=== PATIENT | male | born 1940 | race Caucasian/White ===

== ENCOUNTER 2017-08-01 18:39 | Inpatient (IN) | payer MEDICARE, BC ==
[2017-08-01 20:25] LABS: Troponin I 0.301 ng/mL (< 0.028)
[2017-08-01] MEDS ORDERED: Enoxaparin Sodium 100 MG/ML SYRINGE ONE (20:31)
--- NOTE | 2017-08-01 21:18 | CT ---
CT BRAIN NONCONTRAST: HISTORY: 77-year-old male with altered mental status and acute head trauma from fall. FINDINGS: There is no midline shift or any other mass effect. There is no evidence of acute intracranial hemor rhage, large cortical infarct, obstructive hydrocephalus, or extraaxial fluid collection. The calvar ium is intact. IMPRESSION: No acute intracranial findings. cristal POS: [facility]
--- NOTE | 2017-08-01 21:44 | PDOC.EVN ---
Event Note - Event Note Event Note: [id number] H&P Dictated 1. CAD 2. FEVER 3. HTN 4. Fatigue plan: see orders
[2017-08-01 21:52] VITALS: BMI 29.5
[2017-08-01] MEDS ORDERED: HYDROcodone/Acetaminophen 5/325 mg Tablet PO PRN (22:13)
[2017-08-01] MEDS ORDERED: Ondansetron HCl/PF 4 MG/2 ML Vial IVP PRN (22:13)
[2017-08-01] MEDS ORDERED: Sodium Chloride 0.9% 1,000 ML IV SCH (22:15)
[2017-08-01] MEDS: Tamsulosin HCl 0.4 MG CAP PO SCH ×2 (23:05→23:06)
[2017-08-01] MEDS: MEROPENEM 1 GM/50 ML 1 GM in Premix Bag 1 BAG IVPB SCH (23:11)
[2017-08-01 23:39] LABS: Troponin I 0.298 ng/mL (< 0.028)
[2017-08-02] MEDS: Acetaminophen 325 MG TAB PO PRN ×2 (00:39→15:57)
[2017-08-02 02:12] LABS: #Eosinphils 0.1 thou/uL (0.0-0.7); #Lymphocytes 0.5 thou/uL (1.20-3.40); #Monocytes 0.6 thou/uL (0.11-0.59); #Neutrophils 4.2 thou/uL (1.40-6.50); %Basophils 0.7 % (0.0-1.0); %Lymphocytes 9.3 % (21.0-51.0); %Monocytes 11.3 % (0.0-10.0); Hematocrit 39.4 % (42.0-52.0); Mean Platelet Volume 9.8 fL (7.4-10.4); Red Blood Cell (RBC) Count 4.32 mill/uL (4.70-6.10); White Blood Cell (WBC) Count 5.4 thou/uL (4.8-10.8)
[2017-08-02 02:36] LABS: Anion Gap 10 mmol/L (10-20); BUN (Urea Nitrogen) 14 mg/dL (8.4-25.7); Calc. Creatinine Clearance 107 mL/min (70-130); Calcium 8.6 mg/dL (7.8-10.44); Carbon Dioxide 24 mmol/L (23-31); Chloride 108 mmol/L (98-107); Estimated GFR-MDRD Greater than 90
[2017-08-02 02:53] LABS: Troponin I 0.326 ng/mL (< 0.028)
[2017-08-02 03:27] LABS: Bilirubin Negative (Negative); Blood, Urine Moderate (Negative); Glucose, Urine (Dipstick) Negative (Negative); Ketone, Urine Negative (Negative); Nitrite Negative (Negative); Protein, Urine (Dipstick) 100 mg/dL (Neg-Trace)
[2017-08-02 03:29] LABS: Bacteria/HPF None Seen HPF (None Seen); Hyaline Casts/LPF 0-3 HYALINE CAST LPF (0-3 Hyaline); Squamous Epithelial 0-3 HPF (0-3); WBC/HPF 0-3 HPF (0-3)
--- NOTE | 2017-08-02 06:18 | HP ---
DATE OF ADMISSION: 08/01/2017 CHIEF COMPLAINT: Fever, weakness, falls. HISTORY OF PRESENT ILLNESS: The patient is a 77-year-old male with past medical history of hepatocellular carcinoma, coronary artery disease, hypertension, came to the ER complaining of falls. The patient was having falls since this morning associated with some weakness also who had 2 episodes of falls. Denies any head injury, denies any loss of consciousness. The patient also having cough and also fever; fever at home is up to 100.2. The patient was having body aches. The patient had an episode of diarrhea yesterday , numerous episodes and also episode of vomiting also. Complains of decreased p.o. intake. Headache is mild in intensity. Denies any radiation. No aggravating factors, no relieving factors. Denies any chest pain, denies any dizziness at this time. PAST MEDICAL HISTORY: As per HPI. PAST SURGICAL HISTORY: CABG, carpel tunnel surgery, eye surgery. SOCIAL HISTORY: Denies smoking, denies alcohol, denies any drugs. FAMILY HISTORY: Positive for heart problems. REVIEW OF SYSTEMS: Constitutional: Positive for fatigue. Positive for fever. Eyes: Denies any vision problems. Ears: Decreased hearing, chronic. Neck: Denies any neck pain. Cardiovascular System: Denies any chest pain. Denies any palpations. Respiratory System: Positive for cough. Gastrointestinal: Denies nausea, vomiting. Musculoskeletal: Denies any joint deformities. Cranial Nerves System: Denies syncope. All other review of systems are reviewed and are negative. PHYSICAL EXAMINATION: CONSTITUTIONAL/VITAL SIGNS: Blood pressure is 178/70, temperature 102, respiratory rate 18. GENERAL: The patient appears comfortable. HEENT: Pupils are equal, round, and reactive to light. Anterior nares patent. Nose normal. Ears normal. Teeth intact. CHEST: old healed scar present. GASTROINTESTINAL: Abdomen is soft, nontender, no guarding, no organomegaly, no masses felt. RESPIRATORY SYSTEM: Diminished breath sounds present bilaterally. No wheezing , no rhonchi. Breath sounds present bilaterally. MUSCULOSKELETAL: No edema. CRANIAL NERVE SYSTEM: Cranial nerves intact. Follows commands. Speech clear. PSYCHIATRIC: Mood is appropriate at this time. LABORATORY DATA: Labs at the time of H&P performed, troponin 0.301. CK 107. Flu test negative. Chest x-ray no acute disease seen. BMP showed sodium 142, potassium 3.5, chloride 108, CO2 of 20, BUN 13, creatinine 0.83. Lactic acid 1.2. BNP 900. ASSESSMENT AND PLAN: The patient is a 77-year-old male: 1. [id number] elevation myocardial infarction. Plan to check cardiac enzymes. Plan to monitor the patient closely. The patient received a dose of Lovenox in the ER. Elevated troponins might be demand ischemia. We will follow the patient closely. 2. Systemic inflammatory response syndrome, etiology unclear. Plan to start broad-spectrum antibiotics, repeat chest x-ray in the morning, and we will monitor the patient closely. We will send urinalysis and urine culture and sensitivity also. 3. History of hypertension. Monitor blood pressures. Continue home blood pressure medications. 4. Falls. Probably secondary to generalized weakness. We will get PT, OT evaluation. 5. History of coronary artery disease. Continue home medications. The case was discussed in detail with the patient. RACHEL
[2017-08-02 06:54] LABS: Troponin I 0.297 ng/mL (< 0.028)
[2017-08-02] MEDS: Famotidine 20 MG TAB PO SCH ×2 (08:06→20:29)
[2017-08-02] MEDS: FLUoxetine HCl 10 MG CAP PO SCH (08:06)
[2017-08-02] MEDS: Aspirin 81 mg Enteric Coated Tablet PO SCH (08:06)
[2017-08-02] MEDS: MEROPENEM 1 GM/50 ML 1 GM in Premix Bag 1 BAG IVPB SCH ×4 (08:06→23:44)
[2017-08-02] MEDS: Heparin 5,000 UNITS/ML VIAL SC SCH ×3 (08:07→20:28)
[2017-08-02] MEDS: Lisinopril 20 MG TAB PO SCH ×2 (08:07→20:28)
[2017-08-02] MEDS: traMADol HCl 50 MG TAB PO SCH ×2 (08:07→20:29)
[2017-08-02] MEDS: Tamsulosin HCl 0.4 MG CAP PO SCH (08:08)
--- NOTE | 2017-08-02 09:51 | PDOC.PN ---
- Subjective Encounter Start Date: 08/02/17 Encounter Start Time: 09:49 Mr. Apodaca was seen today in follow-up of generalized weakness, and elevated troponin's - Objective MAR Reviewed: Yes Vital Signs & Weight: Vital Signs (12 hours) Temp Pulse Resp BP BP Pulse Ox 08/02/17 07:15 99.0 F 77 20 159/74 H 95 08/02/17 05:00 100.4 F H 72 18 140/67 95 08/02/17 01:25 100.4 F H 08/02/17 00:35 101.1 F H 165/74 H I&O: 08/01/17 08/02/17 08/03/17 06:59 06:59 06:59 Intake Total 100 Balance 100 Result Diagrams: 08/02/17 02:02 08/02/17 02:02 Phys Exam - Physical Examination HEENT: PERRLA Respiratory: no wheezing, no rales, no rhonchi, clear to auscultation bilateral Cardiovascular: RRR, no significant murmur Gastrointestinal: soft, non-tender, positive bowel sounds Musculoskeletal: no edema Dx/Plan (1) Viral syndrome Status: Acute (2) SIRS (systemic inflammatory response syndrome) Code(s): R65.10 - SIRS OF NON-INFECTIOUS ORIGIN W/O ACUTE ORGAN DYSFUNCTION Status: Acute (3) Elevated troponin Code(s): R74.8 - ABNORMAL LEVELS OF OTHER SERUM ENZYMES Status: Acute (4) Coronary artery disease Code(s): I25.10 - ATHSCL HEART DISEASE OF [place] CORONARY ARTERY W/O ANG PCTRS Status: Chronic (5) Hypertension Code(s): I10 - ESSENTIAL (PRIMARY) HYPERTENSION Status: Chronic - Plan * Elevated Troponin's- suspect this is due to demand ischemia * Cardiology has been consulted * SIRS- likely viral in origin, his UA was essentially negative, and CXR from [facility] was reported to be negative as well * However will continue Meropenem until culture results are final * CAD- stable
[2017-08-02] MEDS ORDERED: Furosemide 20 MG/2 ML VIAL SLOW IVP SCH (13:30)
--- NOTE | 2017-08-02 14:05 | CON ---
DATE OF CONSULTATION: 08/02/2017 REASON FOR CONSULTATION: Fever with slight increased troponin level. HISTORY OF PRESENT ILLNESS: Mr. Apodaca is a 77-year-old gentleman who has just not been feeling well f or several weeks, had generalized weakness. He was transferred from [place] after he was found to ve a fever of 102 degrees, had some diarrhea and had some increased troponin levels, no chest pain or pressure. He was not eating well. The patient has been falling as well. The patient also had a fall a few weeks ago, hit his head but he said he did not lose consciousness. PAST MEDICAL HISTORY: Previous bypass surgery. PAST SURGICAL HISTORY: Previous bypass surgery. FAMILY HISTORY: Positive for coronary disease. REVIEW OF SYSTEMS: CONSTITUTIONAL: Positive for weakness and fatigue. VISION: No changes. HEARING: No changes. INFECTIOUS DISEASE: Positive for fever of 102 degrees. PULMONARY: No cough or wheezing. CARDIAC: No chest pain, no palpitations. GASTROINTESTINAL: Positive for diarrhea, no nausea or vomiting. SKIN: No rashes. NEUROLOGIC: No unilateral weakness or numbness. PSYCHIATRIC: No unusual depression or anxiety. PHYSICAL EXAMINATION: VITAL SIGNS: His initial blood pressure was high 178/70, temperature 102 degrees. EYES: Sclerae nonicteric. MOUTH: Mucous membranes moist. NECK: Supple, no lymphadenopathy. LUNGS: Clear, no wheezing, rales or rhonchi. CARDIOVASCULAR: Normal S1, normal S2 with frequent premature contractions. There is a soft systolic murmur left lower sternal border. No diastolic murmur, no S3. ABDOMEN: Soft, nontender, no hepatosplenomegaly. EXTREMITIES: Warm, dry, no clubbing or cyanosis. There is mild edema. PERTINENT LABORATORY: BNP was 900, apparently that was in [place], I do not see the BNP done here. EKG sinus rhythm with PACs, right bundle branch block. Troponin level peak 0.326, potassium 3.3, WBCs 5.4, platelet count 110. ASSESSMENT: 1. Fever of uncertain etiology. 2. Increased troponin level, probably demand ischemia. 3. Hypertension. 4. Coronary artery disease. 5. Increased BNP compatible with heart failure. 6. Echocardiogram was done, ejection fraction 50-55%, indicating this is diastolic heart failure. 7. Increased troponin levels, likely demand ischemia. PLAN: 1. Repeat chest x-ray tomorrow. 2. Give a single dose of Lasix. 3. Continue aspirin. 4. Continue CRYSTAL inhibitors. 5. We will be glad to follow with you.
[2017-08-02] MEDS ORDERED: Potassium Chloride 20 MEQ TAB PO SCH (17:00)
[2017-08-03] MEDS: Acetaminophen 325 MG TAB PO PRN ×2 (02:07→16:01)
[2017-08-03 05:03] LABS: Anion Gap 11 mmol/L (10-20); BUN (Urea Nitrogen) 16 mg/dL (8.4-25.7); Calc. Creatinine Clearance 94 mL/min (70-130); Calcium 8.2 mg/dL (7.8-10.44); Carbon Dioxide 25 mmol/L (23-31); Chloride 106 mmol/L (98-107); Estimated GFR-MDRD 82
[2017-08-03 05:16] LABS: #Basophils 0.1 thou/uL (0.0-0.2); #Lymphocytes 0.9 thou/uL (1.20-3.40); #Monocytes 0.5 thou/uL (0.11-0.59); #Neutrophils 3.6 thou/uL (1.40-6.50); %Basophils 1.1 % (0.0-1.0); %Eosinophils 0.5 % (0.0-10.0); %Lymphocytes 17.9 % (21.0-51.0); %Monocytes 9.3 % (0.0-10.0); Hematocrit 38.9 % (42.0-52.0); Mean Platelet Volume 10.3 fL (7.4-10.4); Red Blood Cell (RBC) Count 4.26 mill/uL (4.70-6.10)
[2017-08-03] MEDS: MEROPENEM 1 GM/50 ML 1 GM in Premix Bag 1 BAG IVPB SCH ×3 (08:30→23:22)
[2017-08-03] MEDS: Heparin 5,000 UNITS/ML VIAL SC SCH ×3 (08:31→20:51)
[2017-08-03] MEDS: Aspirin 81 mg Enteric Coated Tablet PO SCH (08:31)
[2017-08-03] MEDS: Tamsulosin HCl 0.4 MG CAP PO SCH (08:31)
[2017-08-03] MEDS: Famotidine 20 MG TAB PO SCH ×2 (08:31→20:50)
[2017-08-03] MEDS: FLUoxetine HCl 10 MG CAP PO SCH (08:31)
[2017-08-03] MEDS: Lisinopril 20 MG TAB PO SCH ×2 (08:31→20:50)
[2017-08-03] MEDS: traMADol HCl 50 MG TAB PO SCH ×2 (08:32→20:50)
--- NOTE | 2017-08-03 09:36 | RAD ---
CHEST 1 VIEW: Date: 08/03/17 HISTORY: Shortness of breath. COMPARISON: Chest 1 view dated 04/27/12. FINDINGS: Lungs are clear. No pneumothorax or effusion. Atelectatic changes left lung base. Severe degenerative changes of the shoulders. Multiple median sternotomy wires. Cardiac silhouette and mediastinal conto urs are similar. No acute osseous abnormality. IMPRESSION: Chronic changes. No acute intrathoracic abnormality. No significant change from 2011. POS: [facility]
[2017-08-03] MEDS ORDERED: Potassium Chloride 20 MEQ TAB PO SCH (09:45)
--- NOTE | 2017-08-03 12:37 | PDOC.PN ---
- Subjective Encounter Start Date: 08/03/17 Encounter Start Time: 12:36 Mr. Apodaca was seen today in follow-up. He says he feels better today. He is concerned that his concern about passing out has not been addressed. His reports that a few days prior to admission the patient feel, unexpectedly, and did not have any recollection of the event. She says he has done this more than once. - Objective MAR Reviewed: Yes Vital Signs & Weight: Vital Signs (12 hours) Temp Pulse Resp BP BP Pulse Ox 08/03/17 11:37 99.4 F 69 16 135/85 99 08/03/17 08:00 98.9 F 71 16 08/03/17 07:52 98.9 F 71 16 170/80 H 94 L 08/03/17 03:49 100.4 F H 76 18 143/69 H I&O: 08/02/17 08/03/17 08/04/17 06:59 06:59 06:59 Intake Total 100 60 Output Total 400 Balance 100 -340 Result Diagrams: 08/03/17 04:12 08/03/17 04:12 Phys Exam - Physical Examination HEENT: PERRLA Respiratory: no wheezing, no rales, no rhonchi, clear to auscultation bilateral Cardiovascular: RRR, no significant murmur Gastrointestinal: soft, non-tender, positive bowel sounds Musculoskeletal: no edema Dx/Plan (1) Viral syndrome Status: Acute (2) SIRS (systemic inflammatory response syndrome) Code(s): R65.10 - SIRS OF NON-INFECTIOUS ORIGIN W/O ACUTE ORGAN DYSFUNCTION Status: Acute (3) Elevated troponin Code(s): R74.8 - ABNORMAL LEVELS OF OTHER SERUM ENZYMES Status: Acute (4) Coronary artery disease Code(s): I25.10 - ATHSCL HEART DISEASE OF [place] CORONARY ARTERY W/O ANG PCTRS Status: Chronic (5) Hypertension Code(s): I10 - ESSENTIAL (PRIMARY) HYPERTENSION Status: Chronic - Plan * SIRS- this is improving- suspect due to a viral syndrome * Still awaiting the blood culture results from [place] * Syncope?- will check carotid dopplers, and will discuss with Dr. Meza. * HTN- blood pressure is stable * Elevated troponins- demand ischemia from SIRS
--- NOTE | 2017-08-03 16:42 | ULT ---
EXAM: CAROTID ULTRASOUND 08/03/17 HISTORY: Syncope. COMPARISON: None. TECHNIQUE: Menjivar scale, color flow, doppler imaging with spectral waveform analysis performed in the carotid and vertebral arteries. FINDINGS: RIGHT CAROTID: Small foci of calcified plaque in the distal common carotid artery, carotid bifurcation and internal carotid artery. Peak systolic velocity of the common carotid artery is 72.8 cm/s. Peak systolic veloc ity of the internal carotid artery is 89.7 cm/s. Systolic ICA to CCA ratio is 1.23. LEFT CAROTID: Small foci of calcified plaque in the common carotid artery, carotid bifurcation and internal carotid artery. Peak systolic velocity of the common carotid artery is 100.4 cm/s. Peak systolic velocity of the internal carotid artery is 69.6 cm/s. Systolic ICA to CCA ratio is 0.7. Antegrade flow in both vertebral arteries. IMPRESSION: No sonographic evidence of hemodynamically significantly stenosis. POS: [facility]
[2017-08-04 08:17] VITALS: TEMP 100.6
[2017-08-04] MEDS: Famotidine 20 MG TAB PO SCH (08:52)
[2017-08-04] MEDS: Aspirin 81 mg Enteric Coated Tablet PO SCH (08:52)
[2017-08-04] MEDS: traMADol HCl 50 MG TAB PO SCH (08:53)
[2017-08-04] MEDS: Lisinopril 20 MG TAB PO SCH (08:53)
[2017-08-04] MEDS: Heparin 5,000 UNITS/ML VIAL SC SCH (08:54)
[2017-08-04] MEDS: Tamsulosin HCl 0.4 MG CAP PO SCH (08:55)
[2017-08-04] MEDS: FLUoxetine HCl 10 MG CAP PO SCH (08:57)
[2017-08-04 08:58] VITALS: BP 140/61
[2017-08-04] MEDS: MEROPENEM 1 GM/50 ML 1 GM in Premix Bag 1 BAG IVPB SCH (10:09)
--- NOTE | 2017-08-04 10:09 | PDOC.PN ---
- Subjective Encounter Start Date: 08/04/17 Encounter Start Time: 10:05 Mr. Apodaca was seen in follow-up of fever, and sepsis syndrome. He feels better, but still has some cough at night. - Objective MAR Reviewed: Yes Vital Signs & Weight: Vital Signs (12 hours) Temp Pulse Resp BP BP BP Pulse Ox 08/04/17 09:58 100.6 F H 79 16 08/04/17 08:53 140/61 08/04/17 07:35 100.6 F H 79 16 183/90 H 93 L 08/04/17 04:10 99.4 F 69 20 143/80 H 08/03/17 23:23 100.0 F H 86 16 144/76 H 93 L I&O: 08/03/17 08/04/17 08/05/17 06:59 06:59 06:59 Intake Total 60 1590 250 Output Total 400 1000 Balance -340 590 250 Result Diagrams: 08/03/17 04:12 08/04/17 04:33 Phys Exam - Physical Examination HEENT: PERRLA Respiratory: no wheezing, no rales, no rhonchi, clear to auscultation bilateral Cardiovascular: RRR, no significant murmur Gastrointestinal: soft, non-tender, positive bowel sounds Musculoskeletal: no edema Dx/Plan (1) Viral syndrome Status: Acute (2) SIRS (systemic inflammatory response syndrome) Code(s): R65.10 - SIRS OF NON-INFECTIOUS ORIGIN W/O ACUTE ORGAN DYSFUNCTION Status: Acute (3) Elevated troponin Code(s): R74.8 - ABNORMAL LEVELS OF OTHER SERUM ENZYMES Status: Acute (4) Coronary artery disease Code(s): I25.10 - ATHSCL HEART DISEASE OF [place] CORONARY ARTERY W/O ANG PCTRS Status: Chronic (5) Hypertension Code(s): I10 - ESSENTIAL (PRIMARY) HYPERTENSION Status: Chronic - Plan * Patient is clinically improved * HTN- blood pressure is labile * Blood cultures from [facility] in [facility] were requested and obtained, and were negative X 48hrs. * He is stable for discharge home.
--- NOTE | 2017-08-04 14:10 | DIS ---
PRIMARY CARE PHYSICIAN: The patient does not have a primary care physician. DATE OF ADMISSION: 08/01/2017 DATE OF DISCHARGE: 08/04/2017 DISCHARGE DISPOSITION: Home. PRIMARY DISCHARGE DIAGNOSES: 1. Viral syndrome. 2. Systemic anti-inflammatory response secondary to #1. 3. History of coronary artery disease. 4. Non-ST elevated myocardial infarction type 2 secondary to demand ischemia. 5. Hypertension. 6. History of hepatocellular carcinoma. 7. History of prostate cancer. DISCHARGE MEDICATIONS: Include Robitussin-AC one teaspoon q.4 hours p.r.n. cough, tramadol 100 mg tw ice a day, Flomax 0.4 mg p.o. daily, Crestor 20 mg at bedtime, Nitrostat 0.4 sublingual p.r.n., lisin opril 20 mg twice daily, fluoxetine 10 mg daily, and aspirin 81 mg a day. PROCEDURES DONE DURING ADMISSION: The patient had a CT scan of the brain showing no acute intracrani al finding. Echo demonstrated an ejection fraction estimated at 50% to 55%, moderate to severe eleva buddy pulmonary artery pressure. No sonographic evidence of any hemodynamically significant stenosis. CODE STATUS: FULL CODE. ALLERGIES: MEPERIDINE, PENICILLIN, PREDNISONE, PROMETHAZINE, PROPOXYPHENE, PROCAINAMIDE, SULFA, AND PREDNISONE. HOSPITAL COURSE: Mr. Apodaca is a pleasant 77-year-old gentleman, who presented to the emergency room w ith some fever and feeling weak and complained of having a fall. He was evaluated in the ER and foun d to have an elevated troponin at 0.3. Cultures were negative; however, including urine and blood cu ltures. Chest x-ray was done, which was essentially normal as well. He is felt that he likely had a viral syndrome and systemic inflammatory response secondary to the virus. He was evaluated by Cardi ology due to the elevated troponin. These are thought to be due to demand ischemia, likely from the sepsis syndrome. The patient's mentioned that he had an episode where he passed out and for thi s reason, carotid Dopplers were done, these were negative. I discussed this with Dr. Meza as well and he recommends that he have an event monitor placed as an outpatient, but suspects that the syncop e was likely orthostatic in origin. The patient was clinically stable. He was very nontoxic in appe arance at the time of discharge despite a low-grade temperature. He will be taken off of all antibio tics and was instructed that if he should have recurrent fever or any worsening symptoms to return to the ER.
--- NOTE | 2017-08-06 17:05 | PQF ---
HALIE SONI TONI MD [id number] [id number] CLINICAL DOCUMENTATION CLARIFICATION FORM: POST DISCHARGE Addendum to original discharge summary date: ____ Late entry note date: __ DATE: 08/06/2017 Please exercise your independent, professional judgment in responding to the clarification form. Clinical indicators are provided on the bottom of this form for your review Please check appropriate box(s): [ X] Sepsis due to: (Pna, UTI, gangrenous gall bladder, etc.) Viral [ ] SIRS due to non-infectious process (please specify etiology) [ X] with organ dysfunction [ ] without organ dysfunction [ ] Severe sepsis with acute organ dysfunction of: (Examples: respiratory failure, encephalopathy, acute kidney failure, other) [ ] Localized infection without sepsis [ ] Other diagnosis [ ] Unable to determine In addition, please specify: Present on Admission (POA): [ X ] Yes [ ] No [ ] Unable to determine For continuity of documentation, please document condition throughout progress notes and discharge summary. Thank You. CLINICAL INDICATORS - SIGNS / SYMPTOMS / LABS DISCHARGE SUMMARY PRIMARY DISCHARGE DIAGNOSIS: Viral Syndrome, Systemic inflammatory response syndrome HOSPITAL COURSE: He is felt that he likely had a viral syndrome and systemic inflammatory response secondary to the virus. He was evaluated by Cardiology due to elevated troponin. These are thought to be due to demand ischemia, likely from sepsis syndrome. H&P CHIEF COMPLAINT: Fever, weakness, falls CONSTITUTIONAL/VITAL SIGNS: Blood pressure is 178/70, temperature 102, respiratory rate 18 LABORATORY DATA: Lactic acid 1.2 ASSESSMENT AND PLAN: Systemic inflammatory response syndrome, etiology unclear. PROGRESS NOTES Mr. Soni was seen in follow-up of fever, and sepsis syndrome Blood cultures from [facility] in [place] were requested and obtained, and were negative X 48hrs. ER VITAL SIGNS: BP 148/74, Pulse: 75, Resp: 15, Temp 99.3 BP 119/64, Pulse 65, Resp: 24 TREATMENTS: Daily CBC Blood/sputum/wound cultures IV antibiotics - broad spectrum IV Fluids Vasopressors, meds (This form is maintained as a part of the permanent medical record) 2014 [employer] All Rights Reserved Reggie [email or web address] [phone] MTDD
== END 2017-08-04 11:09 | disposition home or self-care (01) | DRG 871 ==
LOC: ERS 18:39 → OBSVTOIN 19:40 → 2SW 19:40
PROVIDERS: ADMIT Internal Medicine; ATTEND Internal Medicine
DX: A41.89 Other specified sepsis (principal); I21.A1 Myocardial infarction type 2; Z85.05 Personal history of malignant neoplasm of liver; Z95.1 Presence of aortocoronary bypass graft; I25.10 Atherosclerotic heart disease of native coronary artery without angina pectoris; B34.9 Viral infection, unspecified; I10 Essential (primary) hypertension; Z85.46 Personal history of malignant neoplasm of prostate; Z86.73 Personal history of transient ischemic attack (TIA), and cerebral infarction without residual deficits; I25.2 Old myocardial infarction; R65.20 Severe sepsis without septic shock
CPT/HCPCS: 36415; 70450; 71010; 80048; 81001; 82553; 83735; 84132; 84484; 85025; 93005; 93306; 93880; 94760; 96372; J1644; J1650; J1940

== ENCOUNTER 2019-10-16 11:17 | Outpatient (CLI) | payer MEDICARE, BC ==
[2019-10-16 14:04] LABS: #Basophils 0.1 thou/uL (0.0-0.2); #Eosinphils 0.2 thou/uL (0.0-0.7); #Lymphocytes 1.7 thou/uL (1.20-3.40); #Monocytes 0.8 thou/uL (0.11-0.59); #Neutrophils 7.2 thou/uL (1.40-6.50); %Basophils 0.5 % (0.0-1.0); %Eosinophils 1.8 % (0.0-10.0); %Lymphocytes 17.4 % (21.0-51.0); %Monocytes 8.2 % (0.0-10.0); %Neutrophils 72.1 % (42.0-75.0); Hemoglobin 12.2 g/dL (14.0-18.0); Mean Corpuscular HGB CONC 33.6 g/dL (32.0-36.0); Mean Corpuscular Hemoglobin 30.2 pg (27.0-31.0); Mean Corpuscular Volume 90.1 fL (78.0-98.0); Mean Platelet Volume 11.1 fL (7.4-10.4); Platelet Count 140 thou/uL (130-400); RBC Distribution Width 13.7 % (11.5-14.5); Red Blood Cell (RBC) Count 4.04 mill/uL (4.70-6.10)
[2019-10-16 14:23] LABS: Anion Gap 14 mmol/L (10-20); BUN (Urea Nitrogen) 24 mg/dL (8.4-25.7); Calc. Creatinine Clearance 0 mL/min (70-130); Calcium 9.1 mg/dL (7.8-10.44); Carbon Dioxide 27 mmol/L (23-31); Chloride 107 mmol/L (98-107); Estimated GFR-MDRD 47; Glucose 97 mg/dL (83-110); Potassium 3.5 mmol/L (3.5-5.1); Sodium 144 mmol/L (136-145)
== END 2019-10-16 11:18 | disposition home or self-care (01) ==
LOC: LABBT 11:17
PROVIDERS: ATTEND Internal Medicine Cardiovascular Disease
DX: Z01.812 Encounter for preprocedural laboratory examination (principal); I48.91 Unspecified atrial fibrillation
CPT/HCPCS: 80048; 85025

== ENCOUNTER 2019-10-18 09:44 | Day surgery (SDC) | payer MEDICARE, BC ==
[2019-10-16 12:06] VITALS: BMI 31.9
[2019-10-18] MEDS ORDERED: PROPOFOL 0 ML ONE (10:56)
[2019-10-18] MEDS ORDERED: PROPOFOL 20 ML ONE (11:14)
--- NOTE | 2019-10-19 08:32 | EKG ---
Test Reason : POST Blood Pressure : / mmHG Vent. Rate : 059 BPM Atrial Rate : 061 BPM P-R Int : 000 ms QRS Dur : 146 ms QT Int : 550 ms P-R-T Axes : 000 -81 055 degrees QTc Int : 544 ms Atrial fibrillation with slow ventricular response Left axis deviation Right bundle branch block Inferior infarct (cited on or before 01-AUG-2017) Abnormal ECG When compared with ECG of 01-AUG-2017 18:55, Atrial fibrillation has replaced Sinus rhythm Questionable change in QRS axis T wave inversion no longer evident in Anterior leads Confirmed by DR. Umu ALLEN ([id number]) on 10/19/2019 8:32:05 AM Referred By: TIFFANY Confirmed By:DR. Umu ALLEN
--- NOTE | 2019-10-19 16:37 | OP ---
DATE OF PROCEDURE: 10/19/19 SURGEON: Andrea Meza M.D. PROCEDURE: Cardioversion INDICATION: Persistent atrial fibrillation with diastolic congestive heart failure. The patient is brought to the Post Cath area in the fasting state. The patient was sedated by anesthe graciela. He was given 300 joules dose of synchronized energy and converted to junctional bradycardia, the n sinus rhythm with multiple PACs. The 300 joules was selected as he had a longstanding atrial fibril lation and it was thought most likely we would get a successful cardioversion with one attempt at thi s dose. CONCLUSIONS: 1. Successful cardioversion. 2. Sinus rhythm with frequent PACs.
== END 2019-10-18 12:38 | disposition home or self-care (01) ==
LOC: CCL 09:44
PROVIDERS: ATTEND Internal Medicine Cardiovascular Disease
PROC: 5A2204Z Restoration of Cardiac Rhythm, Single (ICD-10-PCS; principal; 2019-10-18)
DX: I48.11 Longstanding persistent atrial fibrillation (principal); I13.0 Hypertensive heart and chronic kidney disease with heart failure and stage 1 through stage 4 chronic kidney disease, or unspecified chronic kidney disease; N18.3 Chronic kidney disease, stage 3 (moderate); I50.30 Unspecified diastolic (congestive) heart failure; I25.10 Atherosclerotic heart disease of native coronary artery without angina pectoris; E78.00 Pure hypercholesterolemia, unspecified; Z79.01 Long term (current) use of anticoagulants; Z79.82 Long term (current) use of aspirin; Z79.83 Long term (current) use of bisphosphonates; Z79.899 Other long term (current) drug therapy; Z88.0 Allergy status to penicillin; Z88.2 Allergy status to sulfonamides; Z88.8 Allergy status to other drugs, medicaments and biological substances; Z88.5 Allergy status to narcotic agent
CPT/HCPCS: 92960; 93005; 93010; J2704

== ENCOUNTER 2022-02-28 14:18 | Inpatient (IN) | payer MEDICARE, BC ==
[2022-02-28 15:39] LABS: Albumin 3.8 g/dL (3.4-4.8)
[2022-02-28 15:40] LABS: Chloride 101 mmol/L (98-107); Sodium 132 mmol/L (136-145)
[2022-02-28 15:41] LABS: Calcium 9.6 mg/dL (7.8-10.44); Glucose 121 mg/dL (83-110)
[2022-02-28 15:43] LABS: Bilirubin, Total 1.2 mg/dL (0.2-1.2)
[2022-02-28 15:44] LABS: Alkaline Phosphatase 171 U/L (40-110)
[2022-02-28 15:45] LABS: Calc. Creatinine Clearance 0 mL/min (70-130); Estimated GFR 72
[2022-02-28 15:46] LABS: BUN (Urea Nitrogen) 15 mg/dL (8.4-25.7)
[2022-02-28 15:47] LABS: ALT (SGPT) 34 U/L (8-55); Magnesium 1.8 mg/dL (1.6-2.6)
[2022-02-28 15:48] LABS: Lipase 12 U/L (8-78)
[2022-02-28 16:12] LABS: CKMB 1.5 ng/mL (0-6.6)
[2022-02-28 16:35] LABS: #Basophils 0.1 thou/uL (0.0-0.2); #Lymphocytes 0.8 thou/uL (1.20-3.40); #Monocytes 1.5 thou/uL (0.11-0.59); #Neutrophils 7.7 thou/uL (1.40-6.50); %Basophils 0.7 % (0.0-1.0); %Eosinophils 0.4 % (0.0-10.0); %Lymphocytes 8.2 % (21.0-51.0); %Monocytes 14.9 % (0.0-10.0); %Neutrophils 75.8 % (42.0-75.0); Hemoglobin 14.9 g/dL (14.0-18.0); Mean Corpuscular Hemoglobin 32.3 pg (27.0-31.0); Mean Platelet Volume 9.9 fL (7.4-10.4); Platelet Count 139 thou/uL (130-400); RBC Distribution Width 14.1 % (11.5-14.5); Red Blood Cell (RBC) Count 4.62 mill/uL (4.70-6.10); White Blood Cell (WBC) Count 10.1 thou/uL (4.8-10.8)
[2022-02-28 16:56] LABS: Potassium 4.4 mmol/L (3.5-5.1)
[2022-02-28 16:57] LABS: Carbon Dioxide 23 mmol/L (23-31)
[2022-02-28 16:58] LABS: Anion Gap 12 mmol/L (10-20)
[2022-02-28 16:59] LABS: AST (SGOT) 39 U/L (5-34); Protein, Total 6.8 g/dL (5.8-8.1)
[2022-02-28] MEDS ORDERED: cefTRIAXone\\ROCEPHIN 2 GM VIAL ONE (17:10)
[2022-02-28] MEDS ORDERED: Ondansetron ODT 4 MG TAB PO PRN (18:20)
[2022-02-28] MEDS ORDERED: Furosemide 20 MG/2 ML VIAL SLOW IVP SCH (18:20)
[2022-02-28] MEDS ORDERED: Nitroglycerin 0.4 MG TAB (25 Tab Bottle) SL PRN (18:30)
[2022-02-28 18:51] LABS: Bilirubin Negative (Negative); Blood, Urine Negative (Negative); Clarity Clear (Clear); Glucose, Urine (Dipstick) Normal (Negative); Ketone, Urine Trace mg/dL (Negative); Leukocyte Negative Leu/uL (Negative); Nitrite Negative (Negative); Protein, Urine (Dipstick) Negative (Neg-Trace); Specific Gravity, Urine 1.015 (1.002-1.036); Urobilinogen Normal mg/dL (Less than 2)
[2022-02-28 19:42] LABS: Lactic Acid 2.2 mmol/L (0.5-2.2)
[2022-02-28 19:55] LABS: Critical Call Chem Troponin I RESULT DECREASING; Troponin I 0.571 ng/mL (< 0.028)
[2022-02-28] MEDS ORDERED: Apixaban 5 MG TAB PO SCH (21:00)
[2022-02-28 22:13] LABS: Troponin I 0.954 ng/mL (< 0.028)
[2022-02-28] MEDS: Acetaminophen 325 MG TAB PO PRN (22:36)
[2022-03-01] MEDS: Ondansetron PF 4 MG/2 ML Vial IVP PRN (00:49)
[2022-03-01] MEDS: Melatonin 3 MG TAB PO PRN (00:59)
[2022-03-01 05:18] LABS: Anion Gap 20 mmol/L (10-20); BUN (Urea Nitrogen) 13 mg/dL (8.4-25.7); Calc. Creatinine Clearance 75 mL/min (70-130); Carbon Dioxide 20 mmol/L (23-31); Chloride 101 mmol/L (98-107); Estimated GFR 85; Glucose 99 mg/dL (83-110); Potassium 4.6 mmol/L (3.5-5.1); Sodium 136 mmol/L (136-145)
[2022-03-01] MEDS: Furosemide 20 MG/2 ML VIAL SLOW IVP SCH ×2 (05:24→15:43)
[2022-03-01 05:52] LABS: Band 4 % (5-11); Hemoglobin 14.8 g/dL (14.0-18.0); Lymphocytes 15 % (21-51); MDiff Complete? YES; Mean Corpuscular HGB CONC 32.4 g/dL (32.0-36.0); Mean Corpuscular Hemoglobin 31.4 pg (27.0-31.0); Mean Corpuscular Volume 97.1 fL (78.0-98.0); Mean Platelet Volume 10.5 fL (7.4-10.4); Monocytes 13 % (0-10); Neutrophil 65 % (42-75); Platelet Count 128 thou/uL (130-400); Platelet Morphology Comment Appears Adequate; RBC Distribution Width 14.3 % (11.5-14.5); RBC Morphology Normal; Reactive Lymphocytes 3 % (0-10); Red Blood Cell (RBC) Count 4.71 mill/uL (4.70-6.10)
[2022-03-01] MEDS ORDERED: traMADol HCl 50 MG TAB PO PRN (15:14)
[2022-03-01] MEDS ORDERED: Non-Formulary Item 1 EACH (Risperidone [Risperdal] 0.5 MG Tab) PO PRN (15:14)
[2022-03-01] MEDS ORDERED: Nitroglycerin 0.4 MG TAB (25 Tab Bottle) SL PRN (15:14)
[2022-03-01] MEDS ORDERED: Gabapentin 300 MG CAP PO SCH (16:00)
[2022-03-01] MEDS ORDERED: Aspirin 81 mg Enteric Coated Tablet PO SCH (18:15)
[2022-03-01] MEDS ORDERED: Apixaban 5 MG TAB PO SCH (21:00)
[2022-03-01] MEDS: risperiDONE 1 MG TAB PO SCH (21:48)
[2022-03-01] MEDS: Apixaban 5 MG TAB PO SCH (21:48)
[2022-03-01] MEDS: Gabapentin 300 MG CAP PO SCH (21:48)
[2022-03-01] MEDS: Rosuvastatin 20 MG TAB PO SCH (21:49)
[2022-03-02 04:34] LABS: #Basophils 0.1 thou/uL (0.0-0.2); #Monocytes 0.9 thou/uL (0.11-0.59); %Eosinophils 0.2 % (0.0-10.0); %Lymphocytes 12.4 % (21.0-51.0); %Monocytes 10.9 % (0.0-10.0); %Neutrophils 75.4 % (42.0-75.0); Mean Corpuscular HGB CONC 32.1 g/dL (32.0-36.0); Mean Corpuscular Hemoglobin 31.3 pg (27.0-31.0); Mean Corpuscular Volume 97.3 fL (78.0-98.0); Mean Platelet Volume 10.5 fL (7.4-10.4); Platelet Count 146 thou/uL (130-400); RBC Distribution Width 14.1 % (11.5-14.5); Red Blood Cell (RBC) Count 4.79 mill/uL (4.70-6.10); White Blood Cell (WBC) Count 7.9 thou/uL (4.8-10.8)
[2022-03-02 04:48] LABS: Anion Gap 22 mmol/L (10-20); BUN (Urea Nitrogen) 16 mg/dL (8.4-25.7); Calc. Creatinine Clearance 71 mL/min (70-130); Calcium 8.9 mg/dL (7.8-10.44); Carbon Dioxide 18 mmol/L (23-31); Chloride 98 mmol/L (98-107); Estimated GFR 80; Glucose 88 mg/dL (83-110); Potassium 4.7 mmol/L (3.5-5.1); Sodium 133 mmol/L (136-145)
[2022-03-02 04:56] LABS: CRP (Inflammatory) 5.35 mg/dL (= or < 0.5); Magnesium 2.1 mg/dL (1.6-2.6)
[2022-03-02] MEDS: Furosemide 20 MG/2 ML VIAL SLOW IVP SCH ×2 (06:10→15:02)
[2022-03-02] MEDS: Aspirin 81 mg Enteric Coated Tablet PO SCH (10:08)
[2022-03-02] MEDS: Gabapentin 300 MG CAP PO SCH ×3 (10:08→20:22)
[2022-03-02] MEDS: Spironolactone 25 MG TAB PO SCH (10:08)
[2022-03-02] MEDS: Apixaban 5 MG TAB PO SCH ×2 (10:08→20:21)
[2022-03-02] MEDS: risperiDONE 1 MG TAB PO SCH ×2 (10:08→20:21)
[2022-03-02] MEDS ORDERED: Milk Of Magnesia 30 ML UDCUP PO PRN (12:53)
[2022-03-02] MEDS: Rosuvastatin 20 MG TAB PO SCH (20:21)
[2022-03-02] MEDS: Melatonin 3 MG TAB PO PRN (20:50)
[2022-03-03] MEDS: Furosemide 20 MG/2 ML VIAL SLOW IVP SCH ×2 (05:09→14:45)
[2022-03-03 06:31] LABS: #Lymphocytes 1.1 thou/uL (1.20-3.40); #Neutrophils 4.4 thou/uL (1.40-6.50); %Basophils 0.3 % (0.0-1.0); %Eosinophils 0.4 % (0.0-10.0); %Lymphocytes 17.1 % (21.0-51.0); %Monocytes 14.9 % (0.0-10.0); %Neutrophils 67.2 % (42.0-75.0); Hemoglobin 14.5 g/dL (14.0-18.0); Mean Corpuscular HGB CONC 31.6 g/dL (32.0-36.0); Mean Corpuscular Hemoglobin 30.6 pg (27.0-31.0); Mean Corpuscular Volume 96.7 fL (78.0-98.0); Mean Platelet Volume 9.8 fL (7.4-10.4); Platelet Count 135 thou/uL (130-400); RBC Distribution Width 13.8 % (11.5-14.5); Red Blood Cell (RBC) Count 4.74 mill/uL (4.70-6.10); White Blood Cell (WBC) Count 6.5 thou/uL (4.8-10.8)
[2022-03-03 06:54] LABS: Anion Gap 20 mmol/L (10-20); BUN (Urea Nitrogen) 21 mg/dL (8.4-25.7); Calc. Creatinine Clearance 81 mL/min (70-130); Calcium 8.3 mg/dL (7.8-10.44); Carbon Dioxide 20 mmol/L (23-31); Chloride 97 mmol/L (98-107); Estimated GFR 87; Glucose 103 mg/dL (83-110); Potassium 3.9 mmol/L (3.5-5.1); Sodium 133 mmol/L (136-145)
[2022-03-03 08:59] VITALS: BMI 25.4
[2022-03-03] MEDS ORDERED: Albuterol 200 PUFF (6.7GM INHALER) INH PRN (09:14)
[2022-03-03] MEDS: Ascorbic Acid 500 mg Chewable Tablet PO SCH (09:23)
[2022-03-03] MEDS: Zinc Sulfate 220 MG CAP PO SCH (09:23)
[2022-03-03] MEDS: Apixaban 5 MG TAB PO SCH ×2 (09:23→20:00)
[2022-03-03] MEDS: risperiDONE 1 MG TAB PO SCH ×2 (09:23→20:05)
[2022-03-03] MEDS: Gabapentin 300 MG CAP PO SCH ×4 (09:23→20:01)
[2022-03-03] MEDS: Spironolactone 25 MG TAB PO SCH (09:23)
[2022-03-03] MEDS: Aspirin 81 mg Enteric Coated Tablet PO SCH (09:24)
[2022-03-03] MEDS: Cholecalciferol (Vitamin D3) 400 UNITS TAB PO SCH (09:24)
[2022-03-03] MEDS: Acetaminophen 325 MG TAB PO PRN (14:41)
[2022-03-03] MEDS: Albuterol 200 PUFF (6.7GM INHALER) INH SCH ×4 (14:41→22:17)
[2022-03-03] MEDS: Rosuvastatin 20 MG TAB PO SCH (20:00)
[2022-03-03] MEDS: Ondansetron PF 4 MG/2 ML Vial IVP PRN (20:00)
[2022-03-03] MEDS: Senokot S 8.6-50 MG TAB PO SCH (20:00)
[2022-03-03] MEDS: Polyethylene Glycol 3350 17 GM Packet PO SCH (20:00)
[2022-03-03] MEDS: Bisacodyl 10 MG SUPP PR SCH (20:01)
[2022-03-03] MEDS: Folic Acid 1 MG TAB PO SCH (20:04)
[2022-03-03] MEDS: Cyanocobalamin (Vitamin B-12) 1,000 MCG TAB PO SCH (20:04)
[2022-03-03] MEDS: Melatonin 3 MG TAB PO PRN (20:05)
[2022-03-04] MEDS: Albuterol 200 PUFF (6.7GM INHALER) INH SCH ×6 (05:20→21:19)
[2022-03-04 06:46] LABS: #Lymphocytes 0.8 thou/uL (1.20-3.40); #Monocytes 0.7 thou/uL (0.11-0.59); #Neutrophils 3.9 thou/uL (1.40-6.50); %Basophils 0.8 % (0.0-1.0); %Eosinophils 0.8 % (0.0-10.0); %Lymphocytes 14.9 % (21.0-51.0); %Neutrophils 70.6 % (42.0-75.0); Hemoglobin 14.3 g/dL (14.0-18.0); Mean Corpuscular HGB CONC 32.1 g/dL (32.0-36.0); Mean Corpuscular Hemoglobin 30.5 pg (27.0-31.0); Mean Platelet Volume 10.2 fL (7.4-10.4); Platelet Count 135 thou/uL (130-400); RBC Distribution Width 13.7 % (11.5-14.5); Red Blood Cell (RBC) Count 4.67 mill/uL (4.70-6.10); White Blood Cell (WBC) Count 5.5 thou/uL (4.8-10.8)
[2022-03-04 06:48] LABS: Anion Gap 16 mmol/L (10-20); BUN (Urea Nitrogen) 22 mg/dL (8.4-25.7); CRP (Inflammatory) 4.04 mg/dL (= or < 0.5); Calc. Creatinine Clearance 86 mL/min (70-130); Calcium 8.5 mg/dL (7.8-10.44); Carbon Dioxide 25 mmol/L (23-31); Chloride 97 mmol/L (98-107); Estimated GFR 88; Glucose 135 mg/dL (83-110); Phosphorus 2.9 mg/dL (2.3-4.7); Potassium 3.8 mmol/L (3.5-5.1); Sodium 134 mmol/L (136-145)
[2022-03-04] MEDS ORDERED: Furosemide 40 MG TAB PO SCH (07:30)
[2022-03-04] MEDS: Cholecalciferol (Vitamin D3) 400 UNITS TAB PO SCH (08:00)
[2022-03-04] MEDS: Ascorbic Acid 500 mg Chewable Tablet PO SCH (08:01)
[2022-03-04] MEDS: Zinc Sulfate 220 MG CAP PO SCH (08:02)
[2022-03-04] MEDS: Apixaban 5 MG TAB PO SCH ×2 (08:02→20:55)
[2022-03-04] MEDS: Acetaminophen 325 MG TAB PO PRN (08:02)
[2022-03-04] MEDS: Spironolactone 25 MG TAB PO SCH (08:03)
[2022-03-04] MEDS: Aspirin 81 mg Enteric Coated Tablet PO SCH (08:03)
[2022-03-04] MEDS: risperiDONE 1 MG TAB PO SCH ×2 (08:03→20:54)
[2022-03-04] MEDS: Gabapentin 300 MG CAP PO SCH ×3 (08:03→20:53)
[2022-03-04] MEDS: Senokot S 8.6-50 MG TAB PO SCH ×2 (08:04→20:54)
[2022-03-04] MEDS: Furosemide 40 MG TAB PO SCH (14:20)
[2022-03-04] MEDS: Potassium Chloride 20 MEQ TAB PO SCH (17:30)
[2022-03-04] MEDS: Rosuvastatin 20 MG TAB PO SCH (20:54)
[2022-03-04] MEDS: Folic Acid 1 MG TAB PO SCH (20:54)
[2022-03-04] MEDS: Cyanocobalamin (Vitamin B-12) 1,000 MCG TAB PO SCH (20:54)
[2022-03-04] MEDS: Polyethylene Glycol 3350 17 GM Packet PO SCH (20:55)
[2022-03-04] MEDS: Bisacodyl 10 MG SUPP PR SCH (20:55)
[2022-03-05] MEDS: Albuterol 200 PUFF (6.7GM INHALER) INH SCH ×4 (02:44→13:30)
[2022-03-05 06:16] LABS: #Eosinphils 0.1 thou/uL (0.0-0.7); #Monocytes 0.7 thou/uL (0.11-0.59); #Neutrophils 4.6 thou/uL (1.40-6.50); %Basophils 0.3 % (0.0-1.0); %Eosinophils 2.2 % (0.0-10.0); %Lymphocytes 15.5 % (21.0-51.0); %Monocytes 10.8 % (0.0-10.0); %Neutrophils 71.3 % (42.0-75.0); Hemoglobin 15.4 g/dL (14.0-18.0); Mean Corpuscular Hemoglobin 31.2 pg (27.0-31.0); Mean Corpuscular Volume 94.4 fL (78.0-98.0); Mean Platelet Volume 10.4 fL (7.4-10.4); Platelet Count 141 thou/uL (130-400); RBC Distribution Width 13.6 % (11.5-14.5); Red Blood Cell (RBC) Count 4.93 mill/uL (4.70-6.10); White Blood Cell (WBC) Count 6.4 thou/uL (4.8-10.8)
[2022-03-05 06:44] LABS: Anion Gap 16 mmol/L (10-20); BUN (Urea Nitrogen) 22 mg/dL (8.4-25.7); Calc. Creatinine Clearance 80 mL/min (70-130); Calcium 8.8 mg/dL (7.8-10.44); Carbon Dioxide 28 mmol/L (23-31); Chloride 97 mmol/L (98-107); Estimated GFR 87; Glucose 114 mg/dL (83-110); Sodium 137 mmol/L (136-145)
[2022-03-05] MEDS: Gabapentin 300 MG CAP PO SCH ×2 (08:46→13:30)
[2022-03-05] MEDS: Furosemide 40 MG TAB PO SCH ×2 (08:46→14:43)
[2022-03-05] MEDS: risperiDONE 1 MG TAB PO SCH (08:48)
[2022-03-05] MEDS: Apixaban 5 MG TAB PO SCH (08:48)
[2022-03-05] MEDS: Senokot S 8.6-50 MG TAB PO SCH (08:52)
[2022-03-05] MEDS: Spironolactone 25 MG TAB PO SCH (08:52)
[2022-03-05] MEDS: Aspirin 81 mg Enteric Coated Tablet PO SCH (08:52)
[2022-03-05] MEDS: Cholecalciferol (Vitamin D3) 400 UNITS TAB PO SCH (08:53)
[2022-03-05] MEDS: Ascorbic Acid 500 mg Chewable Tablet PO SCH (08:53)
[2022-03-05] MEDS: Zinc Sulfate 220 MG CAP PO SCH (08:53)
[2022-03-05] MEDS: Potassium Chloride 20 MEQ TAB PO SCH (08:53)
[2022-03-05 13:35] VITALS: BP 99/59; TEMP 98
== END 2022-03-05 15:15 | DRG 177 ==
LOC: ERS 14:18 → 2NO 17:57 → T4-B 03-02 15:32
PROVIDERS: ADMIT Internal Medicine; ATTEND Internal Medicine
PROC: 8E0ZXY6 Isolation (ICD-10-PCS; principal; 2022-02-28)
DX: U07.1 COVID-19 (principal); I50.33 Acute on chronic diastolic (congestive) heart failure; J96.01 Acute respiratory failure with hypoxia; I21.A1 Myocardial infarction type 2; E87.2 Acidosis; E87.1 Hypo-osmolality and hyponatremia; I48.21 Permanent atrial fibrillation; I11.0 Hypertensive heart disease with heart failure; E78.5 Hyperlipidemia, unspecified; K21.9 Gastro-esophageal reflux disease without esophagitis; R53.81 Other malaise; K59.00 Constipation, unspecified; D69.6 Thrombocytopenia, unspecified; I25.10 Atherosclerotic heart disease of native coronary artery without angina pectoris; Z95.1 Presence of aortocoronary bypass graft; Z85.46 Personal history of malignant neoplasm of prostate; Z85.05 Personal history of malignant neoplasm of liver; Z88.8 Allergy status to other drugs, medicaments and biological substances; Z88.0 Allergy status to penicillin; Z88.2 Allergy status to sulfonamides; Z79.82 Long term (current) use of aspirin; Z79.899 Other long term (current) drug therapy; Z79.01 Long term (current) use of anticoagulants
CPT/HCPCS: 36415; 71045; 80048; 80053; 81003; 82140; 82553; 83605; 83690; 83735; 83880; 84100; 84484; 85025; 86140; 87040; 87086; 93005; 93306; 96361; 96365; 97139; J0696; J1940; J2405; Q0162; U0003; U0005

== ENCOUNTER 2022-05-26 19:06 | Inpatient (IN) | payer MEDICARE, BC ==
[2022-05-26 19:55] LABS: #Eosinphils 0.1 thou/uL (0.0-0.7); #Monocytes 0.6 thou/uL (0.11-0.59); #Neutrophils 9.9 thou/uL (1.40-6.50); %Basophils 0.3 % (0.0-1.0); %Eosinophils 0.9 % (0.0-10.0); %Lymphocytes 8.4 % (21.0-51.0); %Monocytes 5.2 % (0.0-10.0); %Neutrophils 85.2 % (42.0-75.0); Hemoglobin 12.6 g/dL (14.0-18.0); Mean Corpuscular HGB CONC 30.6 g/dL (32.0-36.0); Mean Corpuscular Hemoglobin 30.6 pg (27.0-31.0); Mean Corpuscular Volume 99.9 fL (78.0-98.0); Mean Platelet Volume 8.6 fL (7.4-10.4); Platelet Count 246 thou/uL (130-400); RBC Distribution Width 13.5 % (11.5-14.5); Red Blood Cell (RBC) Count 4.13 mill/uL (4.70-6.10); White Blood Cell (WBC) Count 11.6 thou/uL (4.8-10.8)
[2022-05-26 20:15] LABS: ALT (SGPT) 12 U/L (8-55); AST (SGOT) 19 U/L (5-34); Albumin 3.2 g/dL (3.4-4.8); Alkaline Phosphatase 226 U/L (40-110); Anion Gap 15 mmol/L (10-20); BUN (Urea Nitrogen) 14 mg/dL (8.4-25.7); Bilirubin, Total 1.1 mg/dL (0.2-1.2); Calc. Creatinine Clearance 0 mL/min (70-130); Calcium 8.1 mg/dL (7.8-10.44); Carbon Dioxide 24 mmol/L (23-31); Chloride 102 mmol/L (98-107); Estimated GFR 86; Globulin 2.9 g/dL (2.4-3.5); Glucose 186 mg/dL (83-110); Lipase 7 U/L (8-78); Magnesium 1.9 mg/dL (1.6-2.6); Potassium 4.1 mmol/L (3.5-5.1); Protein, Total 6.1 g/dL (5.8-8.1); Sodium 137 mmol/L (136-145)
[2022-05-26 20:54] LABS: CKMB 2.5 ng/mL (0-6.6)
[2022-05-26] MEDS ORDERED: Aspirin Chewable 81 MG TAB ONE (21:31)
[2022-05-26] MEDS ORDERED: Acetaminophen 325 MG TAB PO PRN (21:55)
[2022-05-26] MEDS ORDERED: Senokot S 8.6-50 MG TAB PO PRN (21:55)
[2022-05-27 00:27] LABS: Troponin I 0.442 ng/mL (< 0.028)
[2022-05-27 02:48] LABS: Troponin I 0.443 ng/mL (< 0.028)
[2022-05-27 04:18] LABS: SARS-CoV-2 NAA Rapid Test DETECTED (NotDetected)
[2022-05-27] MEDS ORDERED: Furosemide 20 MG/2 ML VIAL ONE (06:43)
[2022-05-27 06:48] LABS: #Basophils 0.1 thou/uL (0.0-0.2); #Eosinphils 0.1 thou/uL (0.0-0.7); #Monocytes 0.8 thou/uL (0.11-0.59); #Neutrophils 9.5 thou/uL (1.40-6.50); %Basophils 0.5 % (0.0-1.0); %Lymphocytes 8.7 % (21.0-51.0); %Monocytes 6.7 % (0.0-10.0); %Neutrophils 83.1 % (42.0-75.0); Hemoglobin 12.1 g/dL (14.0-18.0); Mean Corpuscular HGB CONC 32.1 g/dL (32.0-36.0); Mean Corpuscular Hemoglobin 31.1 pg (27.0-31.0); Mean Platelet Volume 8.8 fL (7.4-10.4); Platelet Count 238 thou/uL (130-400); RBC Distribution Width 13.3 % (11.5-14.5); Red Blood Cell (RBC) Count 3.89 mill/uL (4.70-6.10); White Blood Cell (WBC) Count 11.5 thou/uL (4.8-10.8)
[2022-05-27] MEDS: Furosemide 20 MG/2 ML VIAL SLOW IVP SCH ×2 (06:50→15:59)
[2022-05-27 06:57] LABS: Anion Gap 12 mmol/L (10-20); BUN (Urea Nitrogen) 13 mg/dL (8.4-25.7); Calc. Creatinine Clearance 0 mL/min (70-130); Calcium 8.5 mg/dL (7.8-10.44); Carbon Dioxide 29 mmol/L (23-31); Chloride 102 mmol/L (98-107); Estimated GFR 89; Glucose 112 mg/dL (83-110); Potassium 3.7 mmol/L (3.5-5.1); Sodium 139 mmol/L (136-145)
[2022-05-27] MEDS: Apixaban 5 MG TAB PO SCH ×2 (08:49→20:03)
[2022-05-27 15:38] VITALS: BMI 23.5
[2022-05-27] MEDS ORDERED: Digoxin 0.5 MG/2 ML AMP SLOW IVP PRN (18:43)
[2022-05-28] MEDS ORDERED: risperiDONE 1 MG TAB PO SCH (01:15)
[2022-05-28] MEDS: Furosemide 20 MG/2 ML VIAL SLOW IVP SCH ×2 (06:17→14:24)
[2022-05-28 06:54] LABS: #Eosinphils 0.1 thou/uL (0.0-0.7); #Lymphocytes 1.1 thou/uL (1.20-3.40); #Monocytes 0.9 thou/uL (0.11-0.59); #Neutrophils 12.7 thou/uL (1.40-6.50); %Basophils 0.2 % (0.0-1.0); %Eosinophils 0.4 % (0.0-10.0); %Lymphocytes 7.4 % (21.0-51.0); %Monocytes 6.4 % (0.0-10.0); %Neutrophils 85.6 % (42.0-75.0); Mean Corpuscular Hemoglobin 30.3 pg (27.0-31.0); Mean Corpuscular Volume 94.8 fL (78.0-98.0); Mean Platelet Volume 8.8 fL (7.4-10.4); Platelet Count 286 thou/uL (130-400); RBC Distribution Width 13.4 % (11.5-14.5); Red Blood Cell (RBC) Count 4.29 mill/uL (4.70-6.10); White Blood Cell (WBC) Count 14.8 thou/uL (4.8-10.8)
[2022-05-28 07:19] LABS: Anion Gap 19 mmol/L (10-20); BUN (Urea Nitrogen) 20 mg/dL (8.4-25.7); Calc. Creatinine Clearance 77 mL/min (70-130); Calcium 8.9 mg/dL (7.8-10.44); Carbon Dioxide 23 mmol/L (23-31); Chloride 101 mmol/L (98-107); Estimated GFR 87; Glucose 143 mg/dL (83-110); Potassium 3.5 mmol/L (3.5-5.1); Sodium 139 mmol/L (136-145)
[2022-05-28] MEDS ORDERED: FLU VACC QS2022-23(65YR UP)/PF 240 MCG/0.7 ML SYRINGE IM ONE (09:00)
[2022-05-28] MEDS: risperiDONE 1 MG TAB PO SCH ×2 (09:41→20:38)
[2022-05-28] MEDS: Apixaban 5 MG TAB PO SCH ×2 (09:41→20:37)
[2022-05-28] MEDS: Aspirin 81 mg Enteric Coated Tablet PO SCH (09:41)
[2022-05-28] MEDS: Gabapentin 300 MG CAP PO SCH ×3 (09:41→20:37)
[2022-05-28] MEDS: Metoclopramide HCl 10 MG TAB PO SCH ×3 (12:33→20:37)
[2022-05-29 04:19] LABS: #Neutrophils 13.1 thou/uL (1.40-6.50); %Eosinophils 0.3 % (0.0-10.0); %Lymphocytes 6.3 % (21.0-51.0); %Monocytes 6.7 % (0.0-10.0); %Neutrophils 86.8 % (42.0-75.0); Hemoglobin 12.6 g/dL (14.0-18.0); Mean Corpuscular HGB CONC 31.6 g/dL (32.0-36.0); Mean Corpuscular Hemoglobin 30.4 pg (27.0-31.0); Mean Corpuscular Volume 96.2 fL (78.0-98.0); Mean Platelet Volume 8.8 fL (7.4-10.4); Platelet Count 272 thou/uL (130-400); RBC Distribution Width 13.2 % (11.5-14.5); Red Blood Cell (RBC) Count 4.13 mill/uL (4.70-6.10); White Blood Cell (WBC) Count 15.1 thou/uL (4.8-10.8)
[2022-05-29 04:42] LABS: Anion Gap 17 mmol/L (10-20); BUN (Urea Nitrogen) 21 mg/dL (8.4-25.7); Calc. Creatinine Clearance 72 mL/min (70-130); Calcium 8.9 mg/dL (7.8-10.44); Carbon Dioxide 28 mmol/L (23-31); Chloride 99 mmol/L (98-107); Estimated GFR 86; Glucose 144 mg/dL (83-110); Potassium 3.5 mmol/L (3.5-5.1); Sodium 140 mmol/L (136-145)
[2022-05-29] MEDS: Furosemide 20 MG/2 ML VIAL SLOW IVP SCH (05:34)
[2022-05-29] MEDS ORDERED: traZODone HCl 50 MG TAB PO PRN ×2 (09:00→09:04)
[2022-05-29] MEDS ORDERED: Sodium Chloride 0.9% 1,000 ML IV SCH (09:15)
[2022-05-29] MEDS: Apixaban 5 MG TAB PO SCH (11:13)
[2022-05-29] MEDS: Aspirin 81 mg Enteric Coated Tablet PO SCH (11:13)
[2022-05-29] MEDS: Gabapentin 300 MG CAP PO SCH ×3 (11:14→21:16)
[2022-05-29] MEDS: risperiDONE 1 MG TAB PO SCH ×2 (11:14→21:13)
[2022-05-29] MEDS: Metoclopramide HCl 10 MG TAB PO SCH ×4 (11:14→21:20)
[2022-05-29 16:59] LABS: Bacteria/HPF 4+ HPF (None Seen); Bilirubin Negative (Negative); Blood, Urine 2+ (Negative); Clarity Turbid (Clear); Glucose, Urine (Dipstick) Normal (Negative); Ketone, Urine 10 mg/dL (Negative); Leukocyte 500 Leu/uL (Negative); Nitrite 2+ (Negative); Protein, Urine (Dipstick) 10 mg/dL (Neg-Trace); Specific Gravity, Urine 1.013 (1.002-1.036); Squamous Epithelial 0-3 HPF (0-3); Urobilinogen Normal mg/dL (Less than 2); WBC/HPF Greater than 50 HPF (0-3)
[2022-05-29 17:01] LABS: Urine Culture Reflex Yes Yes
[2022-05-29] MEDS: Apixaban 2.5 MG TAB PO SCH (21:18)
[2022-05-29] MEDS: Carvedilol 3.125 MG TAB PO SCH (21:19)
[2022-05-29] MEDS: Rosuvastatin 20 MG TAB PO SCH (21:20)
[2022-05-30] MEDS ORDERED: Sodium Chloride 0.9% 500 ML IV SCH ×2 (01:30→07:45)
[2022-05-30 04:12] LABS: #Eosinphils 0.1 thou/uL (0.0-0.7); #Lymphocytes 0.9 thou/uL (1.20-3.40); #Monocytes 1.1 thou/uL (0.11-0.59); #Neutrophils 12.7 thou/uL (1.40-6.50); %Basophils 0.1 % (0.0-1.0); %Eosinophils 0.4 % (0.0-10.0); %Lymphocytes 5.9 % (21.0-51.0); %Monocytes 7.3 % (0.0-10.0); %Neutrophils 86.3 % (42.0-75.0); Hemoglobin 12.1 g/dL (14.0-18.0); Mean Corpuscular Hemoglobin 30.2 pg (27.0-31.0); Mean Corpuscular Volume 97.4 fL (78.0-98.0); Mean Platelet Volume 8.7 fL (7.4-10.4); Platelet Count 252 thou/uL (130-400); RBC Distribution Width 13.2 % (11.5-14.5); Red Blood Cell (RBC) Count 4.02 mill/uL (4.70-6.10); White Blood Cell (WBC) Count 14.8 thou/uL (4.8-10.8)
[2022-05-30 04:23] LABS: Anion Gap 15 mmol/L (10-20); BUN (Urea Nitrogen) 24 mg/dL (8.4-25.7); Calc. Creatinine Clearance 81 mL/min (70-130); Carbon Dioxide 28 mmol/L (23-31); Chloride 102 mmol/L (98-107); Estimated GFR 89; Glucose 153 mg/dL (83-110); Potassium 3.5 mmol/L (3.5-5.1); Sodium 141 mmol/L (136-145)
[2022-05-30] MEDS ORDERED: Cefepime 1 GM in Sodium Chloride 0.9% 100 ML IVPB SCH (09:00)
[2022-05-30] MEDS: Aspirin 81 mg Enteric Coated Tablet PO SCH (09:57)
[2022-05-30] MEDS: Carvedilol 3.125 MG TAB PO SCH ×2 (09:57→21:13)
[2022-05-30] MEDS: Metoclopramide HCl 10 MG TAB PO SCH ×4 (09:57→21:13)
[2022-05-30] MEDS: Apixaban 2.5 MG TAB PO SCH ×2 (09:57→21:13)
[2022-05-30] MEDS: Gabapentin 300 MG CAP PO SCH ×3 (09:57→21:13)
[2022-05-30] MEDS: risperiDONE 1 MG TAB PO SCH ×2 (09:57→21:13)
[2022-05-30] MEDS ORDERED: Digoxin 0.25 MG TAB PO SCH (12:00)
[2022-05-30] MEDS ORDERED: Iopamidol-370 76% 500 ML 1 ML ONE (13:10)
[2022-05-30] MEDS ORDERED: Polyethylene Glycol 3350 17 GM Packet PO PRN (14:54)
[2022-05-30] MEDS ORDERED: Polyethylene Glycol 3350 17 GM Packet PO SCH (15:00)
[2022-05-30] MEDS ORDERED: Digoxin 0.5 MG/2 ML AMP SLOW IVP SCH (20:00)
[2022-05-30] MEDS ORDERED: Cefepime 2 GM in Sodium Chloride 0.9% 100 ML IVPB SCH (21:00)
[2022-05-30] MEDS: Rosuvastatin 20 MG TAB PO SCH (21:12)
[2022-05-31 08:03] VITALS: BP 133/63; TEMP 96.5
[2022-05-31] MEDS ORDERED: Morphine 4 MG/ML VIAL SLOW IVP PRN (11:56)
[2022-05-31] MEDS ORDERED: Midazolam HCl 2 mg/2 ml Vial SLOW IVP PRN (12:02)
[2022-05-31] MEDS ORDERED: Morphine 4 MG/ML VIAL SLOW IVP SCH (13:00)
== END 2022-05-31 14:45 | disposition expired | DRG 291 ==
LOC: ERS 19:06 → ERHOLD 21:27 → 2NO 05-27 15:22
PROVIDERS: ADMIT Student in an Organized Health Care Education/Training Program; ATTEND Internal Medicine
DX: I11.0 Hypertensive heart disease with heart failure (principal); G93.41 Metabolic encephalopathy; I50.33 Acute on chronic diastolic (congestive) heart failure; J96.01 Acute respiratory failure with hypoxia; I48.20 Chronic atrial fibrillation, unspecified; F03.918 Unspecified dementia, unspecified severity, with other behavioral disturbance; R78.81 Bacteremia; Z66 Do not resuscitate; N30.90 Cystitis, unspecified without hematuria; Z51.5 Encounter for palliative care; I25.10 Atherosclerotic heart disease of native coronary artery without angina pectoris; R53.1 Weakness; R53.81 Other malaise; R77.8 Other specified abnormalities of plasma proteins; B96.20 Unspecified Escherichia coli [E. coli] as the cause of diseases classified elsewhere; F41.9 Anxiety disorder, unspecified; S41.111A Laceration without foreign body of right upper arm, initial encounter; K76.9 Liver disease, unspecified; X58.XXXA Exposure to other specified factors, initial encounter; B34.9 Viral infection, unspecified; Z86.16 Personal history of COVID-19; Z95.1 Presence of aortocoronary bypass graft; Z79.01 Long term (current) use of anticoagulants; Z88.0 Allergy status to penicillin; Z88.2 Allergy status to sulfonamides; Z88.8 Allergy status to other drugs, medicaments and biological substances; Z79.82 Long term (current) use of aspirin; Z79.899 Other long term (current) drug therapy; Z85.46 Personal history of malignant neoplasm of prostate
CPT/HCPCS: 36415; 36416; 71045; 74177; 76705; 80048; 80053; 81001; 82553; 83605; 83690; 83735; 83880; 84484; 85025; 87040; 87077; 87086; 87149; 87186; 87804; 93005; 97139; J0692; J1160; J1940; J1956; J3490; J7030; J7050; Q9967; U0002